=== PATIENT | female | born 1980 | race Caucasian/White ===

== ENCOUNTER → 2018-11-01 | Outpatient (CLI) | payer OTHER ==
[~2018-11-01] MED LIST: CIPRO250 M1 PO; DIFLUCAN150 MG PO; KELNOR 1-351 EACH; NOHOMEMEDICATIONS; PERCOCET 5-3251 EACH PO; PHENERGAN 25 MG25 M1 PO; VICODIN 5-5001 EACH PO; WELLBUTRIN XL300 M1 PO
== END ==
LOC: M.MRI 10-25 12:05
DX: M50.223 Other cervical disc displacement at C6-C7 level (principal); M48.02 Spinal stenosis, cervical region; V89.2XXA Person injured in unspecified motor-vehicle accident, traffic, initial encounter

== ENCOUNTER → 2018-11-02 | Outpatient (CLI) | payer BC | LOC: M.MRI 14:57 | DX: M50.123 Cervical disc disorder at C6-C7 level with radiculopathy (principal); V89.2XXA Person injured in unspecified motor-vehicle accident, traffic, initial encounter; Y93.89 Activity, other specified; Y92.89 Other specified places as the place of occurrence of the external cause; Y99.8 Other external cause status ==